=== PATIENT | female | born 1965 | race Caucasian/White ===

== ENCOUNTER → 2023-03-06 15:41 | Outpatient (BNVA) | payer MEDICARE, OTHER, SELFPAY | PROVIDERS: Visit Provider Family Medicine | DX: Z13.6 Encounter for screening for cardiovascular disorders (principal) | CPT/HCPCS: 80053; 80061; 85025 ==

== ENCOUNTER → 2023-05-05 15:16 | Outpatient (BNVA) | payer MEDICARE, SELFPAY | PROVIDERS: PCP Family Medicine; Referring Provider Family Medicine; Visit Provider Specialist | DX: G56.03 Carpal tunnel syndrome, bilateral upper limbs (principal); R20.0 Anesthesia of skin; R20.2 Paresthesia of skin | CPT/HCPCS: 95910; 95911 ==

== ENCOUNTER → 2023-05-09 11:07 | Outpatient (BNVA) | payer MEDICARE, SELFPAY | PROVIDERS: PCP Family Medicine; Visit Provider Family Medicine | DX: E78.5 Hyperlipidemia, unspecified (principal); Z87.891 Personal history of nicotine dependence; Z79.899 Other long term (current) drug therapy | CPT/HCPCS: 80053; 80061 ==

== ENCOUNTER → 2023-05-18 08:59 | Outpatient (BNVA) | payer MEDICARE, SELFPAY | PROVIDERS: PCP Family Medicine; Referring Provider Family Medicine; Visit Provider Surgery | DX: Z12.11 Encounter for screening for malignant neoplasm of colon (principal) | CPT/HCPCS: 99204 ==

== ENCOUNTER → 2023-06-12 10:18 | Outpatient (BNVA) | payer MEDICARE, SELFPAY | PROVIDERS: PCP Family Medicine; Referring Provider Family Medicine; Visit Provider Nurse Practitioner | DX: G56.03 Carpal tunnel syndrome, bilateral upper limbs | CPT/HCPCS: 99204 ==

== ENCOUNTER 2023-06-20 05:47 | Day surgery (SDC) | payer MEDICARE, SELFPAY ==
[2023-06-20] VITALS (10 sets, daily range): BP systolic 99–166; BP diastolic 65–99; PULSE 70–91; RESP 11–20; TEMP 36.1–36.5; O2SAT 92–95; BMI 28.3
[2023-06-20] MEDS: gabapentin 300 mg Capsule PO (06:13)
[2023-06-20] MEDS: CELEcoxib 200 mg Capsule 400 MG PO (06:13)
[2023-06-20] MEDS: acetaminophen 1,000 MG/100 ML PIGGYBACK 400 MG IV (06:17)
[2023-06-20] MEDS: sodium chloride 0.9% 1,000 ML 30 ML IV (06:17)
--- NOTE | 2023-06-20 06:45 | ANES.PREANE2 ---
Pre-Anesthetic Assessment Height/Weight: Height 1.57 m Weight 70.307 kg Temp Pulse Resp BP Pulse Ox O2 Del Method 97 F L 79 18 166/96 95 Room Air 06/20/23 06:04 06/20/23 06:04 06/20/23 06:04 06/20/23 06:04 06/20/23 06:04 06/20/23 06:08 Preop Diagnosis: Left wrist carpal tunnel syndrome. Operation Date: 06/20/23 07:00 Proposed Procedures p Carpal Tunnel Release(Left) - Argentina Rivas MD Familial anesthetic complications: None Was Beta Corbin taken within 24 hours: N/A Was Clonidine taken within 24 hours: N/A Last intake: Intake Last Liquid Date 06/19/23 Last Liquid Time 22:00 Last Solid Date 06/19/23 Last Solid Time 22:00 Social No alcohol and No tobacco Exam alert, oriented x 3, clear to auscultation bilaterally and regular rate & rhythm Airway Mallampati: Class I Dentition: loose (4 bottom very loose - informed of risk of dislodgement) Neuropsych Seizure (next dose of lamotrigine at 10 am) Anesthetic Plan ASA status: 2 Anesthesia: General Risk of > 500 ml blood loss (7ml/kg in children): No Medications/Allergies Home Medications Medication Instructions Recorded Confirmed Last Taken Type lamotrigine 150 mg tablet 300 mg PO BID 02/28/23 06/19/23 06/19/23 History (Lamictal) loratadine 10 mg tablet (Claritin) 10 mg PO DAILY #90 tabs 02/28/23 06/19/23 06/19/23 Rx trazodone 150 mg tablet 150 mg PO DAILY #90 tabs 04/25/23 06/19/23 06/19/23 Rx atorvastatin 20 mg tablet 20 mg PO DAILY #90 tabs 05/10/23 06/19/23 06/19/23 Rx meloxicam 15 mg tablet 15 mg PO DAILY #90 tabs 05/10/23 06/19/23 06/15/23 Rx Allergies Allergy/AdvReac Type Severity Reaction Status Date / Time codeine Allergy Severe ALGY-Anaphy Verified 06/19/23 13:44 laxis morphine Allergy Severe ALGY-Anaphy Verified 06/19/23 13:44 laxis Current Medications Generic Name Dose Route Start Last Admin Trade Name Freq PRN Reason Stop Dose Admin Sodium Chloride 1,000 mls @ 30 mls/hr 06/20/23 06:00 06/20/23 06:17 Sodium Chloride 0.9% IV 06/21/23 05:59 30 mls/hr .Q24H CAMILO Administration PFSH Anesthesia Medical History History of fractured vertebra Insomnia Seizure disorder Surgical History History of back surgery L4-L5 History of bilateral breast reduction surgery History of hysterectomy DOMINGA-BSO - 2015 due to uterine CA. Family History Grandmother Diabetes Grandfather Heart disease Mother Lung cancer Father Heart disease Bleeding disorder Factor V Leiden Social History Smoking and tobacco/nicotine status: former use of tobacco/nicotine Quit status (tobacco/nicotine): has quit using Second hand smoke exposure: No Alcohol intake: current Alcohol intake frequency: 3 or more drinks per day Alcohol type: beer Household members: spouse Housing: House Marital status: Highest education level completed: High School Graduate Data Anesthesia Cardiac Studies: No Data to Display
--- NOTE | 2023-06-20 07:00 | P.HPUD_ITS ---
Surgery/Procedure H&P Update DATE OF PROCEDURE: June 20, 2023 DATE H&P PERFORMED: 06/12/23 H&P UPDATE INFORMATION: I have reviewed H&P completed within last 30 days, I have examined patient prior to procedure, No changes to prior documentation and H&P is in [facility] EMR on date indicated PREOP DIAGNOSIS: Left wrist carpal tunnel syndrome. PLANNED PROCEDURE: Operation Date: 06/20/23 07:00 Proposed Procedures p Carpal Tunnel Release(Left) - Argentina Rvias MD Related Problem List Diagnoses (1) Carpal tunnel syndrome, left:
[2023-06-20] MEDS: ceFAZolin 2,000 MG in sodium chloride 0.9% (plus) 50 ML 100 MG IV (07:08)
[2023-06-20] MEDS: BUPivacaine 0.5% INJ 30 mL XX (07:48)
--- NOTE | 2023-06-20 08:07 | PM.OP ---
Operative Report Date of procedure: June 20, 2023 Pre-op diagnosis: Left carpal tunnel syndrome Post-op diagnosis: Left carpal tunnel syndrome Post-op findings: Purplish discoloration to the median nerve with hourglass deformity Procedure done: Left carpal tunnel release Specimens removed/disposition: None Surgeon: Argentina Rivas MD Tubing Machine Tender: None Anesthesia: General (Per LMA, ASA 2) Estimated blood loss (mL): 1 Tourniquet time (min): 20 (At 250 mmHg) IV fluids (mL): 500 Urine output (mL): 0 (No Peralta) Complications: None Findings: Significant compression across the carpal canal with purplish discoloration of the nerve and hourglass deformity. Condition: stable Disposition: PACU (Then return to same-day surgery for discharge to home) Brief History: This 58-year-old woman presented to the office with complaints of bilateral wrist pain and numbness. The left was worse on the right, and the symptoms have been ongoing for approximately 2 years. Pain was worse at night and awaken her from sleep. She had tried meloxicam without benefit as well as an home exercise program. Nerve conduction studies confirm severe entrapment of the left median nerve at the wrist. Procedure: The patient was brought to the operating theater. The patient had a general anesthesia per LMA, ASA 2. The tourniquet was elevated to 250 mmHg for a total tourniquet time of 20 minutes. The patient was also given Ancef 2 g preoperatively. The arm was then prepped and draped with DuraPrep in usual fashion with the arm draped free. A surgical pause was performed. At the time, the surgical pause, we confirmed the site and side of surgery. We also confirmed the patient's identity, appropriate and timely administration of preoperative antibiotics and preoperative surgical markings. An incision was then made along the thenar crease. The incision crossed the wrist joint in a curvilinear fashion. Dissection continued through skin and soft tissues using a scalpel. The palmaris longus was identified along with the transverse carpal ligament. Each of these was released carefully to avoid injury to the median nerve. We were able to dissect gently into the carpal canal which was noted to be quite tight with significant compression across the median nerve. The nerve was visualized and was an hourglass shape. The canal was subsequently palpated to assure there was no bony encroachment upon the canal. There was a quite thickened fibrous tissue within the canal, and this was opened longitudinally as well. The canal was then palpated distally and proximally to assure that my small finger was passed easily without impingement. Finding this to be so, attention was directed to closure. The wound was irrigated with ropivacaine plain. It was then closed with 3-0 nylon in an interrupted mattress fashion. Sterile dressing was then placed consisting of Dermabond, OpSite, fluffed fluffs, soft roll, and an Noam wrap. The tourniquet was released after 20 minutes. There were no complications. There were no specimens. The procedure was well tolerated. Plan is the patient will be discharged home. Related Problem List Diagnoses (1) Carpal tunnel syndrome, left:
[2023-06-20] MEDS: TRAMadol 50 mg Tablet PO (08:56)
--- NOTE | 2023-06-20 09:15 | ANE.PACU2 ---
Inpatient post-anesthesia follow up: Airway intact: Yes Vital signs: Temperature 97 F Pulse Rate 70 Respiratory Rate 18 Blood Pressure 145/91 Pulse Oximetry 95 Oxygen Delivery Me thod Room Air Oxygen Flow Rate 8 Fraction of Inspir ed Oxygen Hydration adequate: Yes Nausea and vomiting: No Pain level: 1 Mental status: Baseline
== END 2023-06-20 09:14 | disposition home or self-care (01) ==
PROVIDERS: PCP Family Medicine; Visit Provider Specialist
PROC: (CPT 64721; principal; 2023-06-20 07:00)
DX: G56.02 Carpal tunnel syndrome, left upper limb (principal); Z87.891 Personal history of nicotine dependence
CPT/HCPCS: 64721; J0131; J0690; J1100; J2250; J2405; J2704; J3010; J3490; J7030

== ENCOUNTER → 2023-07-10 16:24 | Outpatient (BNVA) | payer MEDICARE, SELFPAY | PROVIDERS: PCP Family Medicine; Visit Provider Specialist | DX: Z01.818 Encounter for other preprocedural examination (principal); G56.03 Carpal tunnel syndrome, bilateral upper limbs | CPT/HCPCS: 36415; 80053; 81003; 85025; 99214 ==

== ENCOUNTER 2023-07-20 07:43 | Day surgery (SDC) | payer MEDICARE, SELFPAY ==
[2023-07-20] VITALS (9 sets, daily range): BP systolic 129–172; BP diastolic 67–107; PULSE 65–91; RESP 16–18; TEMP 36.1–36.7; O2SAT 91–96; BMI 28.3
--- NOTE | 2023-07-20 08:05 | P.HPUD_ITS ---
Surgery/Procedure H&P Update DATE OF PROCEDURE: July 20, 2023 DATE H&P PERFORMED: 07/10/23 H&P UPDATE INFORMATION: I have reviewed H&P completed within last 30 days, I have examined patient prior to procedure, No changes to prior documentation and H&P is in [facility] EMR on date indicated PLANNED PROCEDURE: Operation Date: 07/20/23 09:30 Proposed Procedures p Carpal Tunnel Release(Right) - Argentina Rivas MD Related Problem List Diagnoses (1) Carpal tunnel syndrome on right:
[2023-07-20] MEDS: acetaminophen 1,000 MG/100 ML PIGGYBACK 400 MG IV (08:17)
[2023-07-20] MEDS: CELEcoxib 200 mg Capsule 400 MG PO (08:20)
[2023-07-20] MEDS: sodium chloride 0.9% 1,000 ML 30 ML IV (08:23)
[2023-07-20] MEDS: ceFAZolin 2,000 MG in sodium chloride 0.9% (plus) 50 ML 100 MG IV (08:50)
--- NOTE | 2023-07-20 09:05 | ANES.PREANE2 ---
Pre-Anesthetic Assessment Height/Weight: Height 1.57 m Weight 70.307 kg Temp Pulse Resp BP Pulse Ox O2 Del Method 97.7 F 83 16 158/99 96 Room Air 07/20/23 08:00 07/20/23 08:00 07/20/23 08:00 07/20/23 08:00 07/20/23 08:00 07/20/23 08:02 Preop Diagnosis: CTS Operation Date: 07/20/23 09:30 Proposed Procedures p Carpal Tunnel Release(Right) - Argentina Rivas MD Was Beta Corbin taken within 24 hours: N/A Was Clonidine taken within 24 hours: N/A Last intake: Intake Last Liquid Date 07/19/23 Last Liquid Time 22:00 Last Solid Date 07/19/23 Last Solid Time 22:00 Social No alcohol and No tobacco Exam alert, oriented x 3, clear to auscultation bilaterally and regular rate & rhythm Airway Submandibular: within normal limits Cervical ROM: within normal limits Mallampati: Class II Dentition: false Comments: Comments: upper. 4 loose teeth front bottom History/ROS No significant history except as noted and No significant complaints Pulmonary None reported CV/HEM None reported None reported Hepatic None reported GI None reported Metabolic None reported Musc/skel None reported Neuropsych Seizure Anesthetic Plan ASA status: 2 Anesthesia: Anesthesia Evaluation and General Risk of > 500 ml blood loss (7ml/kg in children): No Medications/Allergies Home Medications Medication Instructions Recorded Confirmed Last Taken Type lamotrigine 150 mg tablet 300 mg PO BID 02/28/23 07/17/23 07/20/23 History (Lamictal) loratadine 10 mg tablet (Claritin) 10 mg PO DAILY #90 tabs 02/28/23 07/17/23 07/19/23 Rx atorvastatin 20 mg tablet 20 mg PO BEDTIME 07/17/23 07/17/23 07/19/23 History meloxicam 15 mg tablet 15 mg PO DAILY PRN Pain, Mild 07/17/23 07/17/23 07/10/23 History trazodone 150 mg tablet 150 mg PO BEDTIME 07/17/23 07/17/23 07/19/23 History Allergies Allergy/AdvReac Type Severity Reaction Status Date / Time codeine Allergy Severe ALGY-Anaphy Verified 07/10/23 15:57 laxis morphine Allergy Severe ALGY-Anaphy Verified 07/10/23 15:57 laxis Current Medications Generic Name Dose Route Start Last Admin Trade Name Freq PRN Reason Stop Dose Admin Sodium Chloride 1,000 mls @ 30 mls/hr 07/20/23 08:00 07/20/23 08:23 Sodium Chloride 0.9% IV 07/21/23 07:59 30 mls/hr .Q24H CAMILO Administration PFSH Anesthesia Medical History History of fractured vertebra Insomnia Seizure disorder Surgical History History of back surgery L4-L5 History of bilateral breast reduction surgery History of hysterectomy DOMINGA-BSO - 2015 due to uterine CA. Family History Grandmother Diabetes Grandfather Heart disease Mother Lung cancer Father Heart disease Bleeding disorder Factor V Leiden Social History Smoking and tobacco/nicotine status: former use of tobacco/nicotine Quit status (tobacco/nicotine): has quit using Second hand smoke exposure: No Alcohol intake: current Alcohol intake frequency: 3 or more drinks per day Alcohol type: beer Household members: spouse Housing: House Marital status: Highest education level completed: High School Graduate Data Anesthesia Cardiac Studies: No Data to Display
[2023-07-20] MEDS: BUPivacaine 0.5% INJ 30 mL XX (09:18)
--- NOTE | 2023-07-20 10:25 | P.OP_ITS ---
Operative Report Date of procedure: July 20, 2023 Pre-op diagnosis: Right carpal tunnel syndrome Post-op diagnosis: Right carpal tunnel syndrome Post-op findings: Severe carpal tunnel syndrome with purplish discoloration of the median nerve and compression across the carpal canal Procedure done: Right carpal tunnel release Implants: None Specimens removed/disposition: None Surgeon: Argentina Rivas MD Associate Java Developer: None Anesthesia: General (Per LMA, ASA 2) Estimated blood loss (mL): 1 Tourniquet time (min): 18 (At 250 mmHg) IV fluids (mL): 400 Urine output (mL): 0 (No Peralta) Complications: None Findings: Consistent with severe carpal tunnel syndrome Condition: stable Disposition: PACU (Then return to same-day surgery for discharge to home) Brief History: This 58-year-old woman presents today for right carpal tunnel release. Previously, in May of this year, she underwent left carpal tunnel release and she is doing well following this. Today, she presents for right carpal tunnel release. Risks and complications were discussed with her in the office. Consents were signed and questions were answered. Procedure: The patient was brought to the operating theater. The patient had a general anesthesia per LMA, ASA 2. The tourniquet was elevated to 250 mmHg for a total tourniquet time of 18 minutes. The patient was also given Ancef 2 g preoperatively. The arm was then prepped and draped with DuraPrep in usual fashion with the arm draped free. A surgical pause was performed. At the time, the surgical pause, we confirmed the site and side of surgery. We also confirmed the patient's identity, appropriate and timely administration of preoperative antibiotics and preoperative surgical markings. An incision was then made along the thenar crease. The incision crossed the wrist joint in a curvilinear fashion. Dissection continued through skin and soft tissues using a scalpel. The palmaris longus was identified along with the transverse carpal ligament. Each of these was released carefully to avoid injury to the median nerve. We were able to dissect gently into the carpal canal which was noted to be quite tight with significant compression across the median nerve. The nerve was visualized and was an hourglass shape. The canal was subsequently palpated to assure there was no bony encroachment upon the canal. There was a quite thickened fibrous tissue within the canal, and this was opened longitudinally as well. The canal was then palpated distally and proximally to assure that my small finger was passed easily without impingement. Finding this to be so, attention was directed to closure. The wound was irrigated with ropivacaine plain. It was then closed with 3-0 nylon in an interrupted mattress fashion. Sterile dressing was then placed consisting of Dermabond, OpSite, fluffed fluffs, soft roll, and an Noam wrap. The tourniquet was released after 18 minutes. There were no complications. There were no specimens. The procedure was well tolerated. Plan is the patient will be discharged home. Related Problem List Diagnoses (1) Carpal tunnel syndrome on right:
--- NOTE | 2023-07-20 11:00 | ANE.PACU2 ---
Inpatient post-anesthesia follow up: Airway intact: Yes Vital signs: Temperature 98.1 F Pulse Rate 67 Respiratory Rate 16 Blood Pressure 129/90 Pulse Oximetry 95 Oxygen Delivery Me thod Room Air Oxygen Flow Rate Fraction of Inspir ed Oxygen Hydration adequate: Yes Nausea and vomiting: No Pain level: 1 Mental status: Baseline
== END 2023-07-20 11:00 | disposition home or self-care (01) ==
PROVIDERS: PCP Family Medicine; Visit Provider Specialist
PROC: (CPT 64721; principal; 2023-07-20 09:20)
DX: G56.01 Carpal tunnel syndrome, right upper limb (principal); Z87.891 Personal history of nicotine dependence
CPT/HCPCS: 64721; J0131; J0690; J1100; J2405; J2704; J3010; J3490; J7030

== ENCOUNTER → 2023-08-07 07:50 | Outpatient (BNVA) | payer MEDICARE, SELFPAY | PROVIDERS: PCP Family Medicine; Visit Provider Specialist | DX: G56.03 Carpal tunnel syndrome, bilateral upper limbs (principal) | CPT/HCPCS: 99024 ==

== ENCOUNTER → 2023-12-21 13:38 | Outpatient (BNVA) | payer MEDICARE, SELFPAY | PROVIDERS: PCP Family Medicine; Visit Provider Family Medicine | DX: D48.5 Neoplasm of uncertain behavior of skin (principal) | CPT/HCPCS: 88305 ==

== ENCOUNTER 2024-01-03 09:48 | Outpatient (CLI) | payer MEDICARE, SELFPAY ==
--- NOTE | 2024-01-03 10:00 | CT_ITS ---
WS: [id number] LDCT LUNG CANCER SCREENING HISTORY: screening for lung cancer; smoker; 60pk yr TECHNIQUE: Axial imaging performed from the apices to 1 cm below the costophrenic angles. Coronal and sagittal reformats are submitted with axial MIP series. All CT scans at [facility] use at least one of these dose optimization techniques: automated exposure control; mA and/or kV adjustment per patient size (includes targeted exams where dose is matched to clinical indication); or iterativ e reconstruction. DLP: 55.72 mGy.cm DIvol: Mean CTDIvol: 1.10 (mGy) COMPARISON: None available. Diagnostic quality: Satisfactory Lungs: Slightly hyperexpanded lungs. No mass or pneumonia. No pulmonary nodules. No endobronchial les ions or groundglass attenuation. Very slight bronchial wall irregularity and dilatation LEFT upper lo be. Early changes of bronchiectasis. Heart: Normal size heart with no pericardial effusion.. Other findings: Mild atherosclerosis aorta. No mediastinal or hilar adenopathy. Low-attenuation LEFT adrenal mass measures 2.5 x 2.4 cm consistent with an adrenal adenoma. Mild increase in thoracic kyph osis. CT/CT lung screening [id number] IMPRESSION: LUNG-RADS: 1S-Negative with Significant Findings FOLLOW UP: 12 Month: Continue annual screening with LDCT OTHER FINDINGS (S MODIFIER): LEFT adrenal adenoma.
== END 2024-01-03 09:49 | disposition home or self-care (01) ==
LOC: RAD 09:49
PROVIDERS: PCP Family Medicine; Visit Provider Family Medicine
DX: F17.210 Nicotine dependence, cigarettes, uncomplicated (principal); Z12.2 Encounter for screening for malignant neoplasm of respiratory organs; D35.02 Benign neoplasm of left adrenal gland; M40.204 Unspecified kyphosis, thoracic region; I70.0 Atherosclerosis of aorta
CPT/HCPCS: 71271

== ENCOUNTER 2024-03-24 11:47 | Inpatient (IN) | payer MEDICARE, SELFPAY ==
[2024-03-24] VITALS (16 sets, daily range): BP systolic 118–155; BP diastolic 76–90; PULSE 89–127; RESP 16–24; TEMP 37.1–39.2; O2SAT 87–96; BMI 26.5; BMI 26.7
--- NOTE | 2024-03-24 11:48 | ECG_ITS ---
[facility]: 2024-03[facility]24 Pat Name: Meka Kendall Department: Room: Gender: Female Capacity Management Specialist: : [id number] Requested By: Donna Morales Order Number: [id number] Jermaine MD: Lester Luis M.D. Measurements Intervals [place] Rate: 128 P: 74 ND: 164 QRS: 254 QRSD: 80 T: 70 QT: 289 QTc: 422 Interpretive Statements SINUS TACHYCARDIA PATTERN CONSISTENT WITH PULMONARY DISEASE RIGHT VENTRICULAR HYPERTROPHY [SOME/ALL OF: PROMINENT R IN V1, LATE TRANSITION, RAD, TAMANNA, SSS] MINIMAL ST DEPRESSION [0.025+ mV ST DEPRESSION] No previous ECG available for comparison Electronically Signed On 03-24-2024 20:04:22 FEATHERER by Lester Luis M.D. [id number]
--- NOTE | 2024-03-24 11:51 | XRR_ITS ---
PROCEDURE INFORMATION: Exam: XR Chest Exam date and time: 03/24/2024 12:14 PM Age: 58 years old Clinical indication: Shortness of breath; Prior surgery; Surgery date: 6+ months; Surgery type: Bilateral breast reduction; Additional info: SOB TECHNIQUE: Imaging protocol: Radiologic exam of the chest. Views: 1 view. COMPARISON: CT lung screening [id number] 01/03/2024 9:54 AM FINDINGS: Lungs: Unremarkable. No consolidation or mass. Pleural spaces: Unremarkable. No pleural effusion. No pneumothorax. Heart/Mediastinum: Unremarkable. No cardiomegaly. Bones/joints: Unremarkable. XR/XR chest 1V portable [id number] IMPRESSION: No acute findings.
--- NOTE | 2024-03-24 12:14 | ED_ITS ---
HPI - SOB/Dyspnea 2 General: Chief Complaint: Shortness of Breath/Dyspnea Stated Complaint: sob Time Seen by Provider: 03/24/24 12:00 Source: patient Mode of arrival: ambulatory Limitations: no limitations History of Present Illness: HPI Narrative: 58-year-old female is a longtime smoker states that over the last 2 days she has been having increasing cough congestion fevers along with shortness of breath. States she has been having vomiting as well cough but nonproductive she denies any worsening improving factors. Associated symptoms: Reports fever(s); Deny abdominal pain, chest pain, nausea or vomiting Related Data Home Medications Medication Instructions Recorded Confirmed lamotrigine 150 mg tablet 300 mg PO BID 02/28/23 03/24/24 (Lamictal) trazodone 150 mg tablet 150 mg PO DAILY 03/24/24 03/24/24 Previous Rx's Medication Instructions Recorded loratadine 10 mg tablet (Claritin) 10 mg PO DAILY #90 tabs 02/28/23 rosuvastatin 20 mg tablet 20 mg PO DAILY #90 tabs 01/08/24 Allergies Allergy/AdvReac Type Severity Reaction Status Date / Time codeine Allergy Severe ALGY-Anaphy Verified 03/24/24 11:57 laxis morphine Allergy Severe ALGY-Anaphy Verified 03/24/24 11:57 laxis Review of Systems 2 Const: Reports: fever(s) and body aches; Denies: chills or change in appetite ENMT: Denies: throat pain or dental pain Card: Denies: chest pain Resp: Reports: dyspnea and non-productive cough GI: Denies: abdominal pain, nausea, vomiting or diarrhea Musc: Denies: neck pain or back pain Skin/Breast: Denies: rash Neuro: Denies: headache(s) PFSH ED 2 PFSH: Medical History Fibromyalgia Nicotine dependence, cigarettes, uncomplicated Hx of cancer of uterus had hyst History of fractured vertebra Insomnia Seizure disorder Surgical History History of carpal tunnel release of both wrists Hx of reduction mammoplasty History of back surgery L4-L5 History of bilateral breast reduction surgery History of hysterectomy DOMNIGA-BSO - 2015 due to uterine CA. Family History Grandmother Diabetes Grandfather Heart disease Mother Lung cancer Father Heart disease Bleeding disorder Factor V Leiden Social History Smoking and tobacco/nicotine status: current every day tobacco/nicotine user cigarettes Packs smoked per day: 1.5 Years cigarettes smoked: 40 [ Other cigarette details: age 18 to now] Alcohol intake: current Alcohol intake frequency: 3 or more drinks per day Alcohol type: beer Substance/Drug Use: never Household members: spouse Housing: House Marital status: Number of children: 3 Highest education level completed: High School Graduate Current occupational status: disabled 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 Exam 2 Const: COMMON NORMALS: patient oriented x3 HENMT: COMMON NORMALS: normocephalic and atraumatic HEAD & SCALP: n ormocephalic and atraumatic Eye: COMMON NORMALS: Equal, round and reactive pupils present and conjunctivae normal CONJUNCTIVA: Yes conjunctivae normal PUPIL: Yes Equal, round and reactive pupils present Neck/C-Spine: COMMON NORMALS: full ROM and supple Chest: COMMONS NORMALS: normal inspection of the chest Resp: COMMON NORMALS: No retractions and clear to auscultation bilaterally AUSCULTATION: clear to auscultation bilaterally and wheezes Cardio: COMMON NORMALS: regular rate, regular rhythm and No murmurs present (Cardio) RATE: regular rate RHYTHM: regular rhythm GI: COMMON NORMALS: Normal to inspection, nondistended, normoactive bowel sounds present, Soft to palpation, non-tender and no masses PALPATION: Yes Soft to palpation Extremity: COMMON NORMALS: normal to inspection and full ROM Neuro: COMMON NORMALS: patient oriented x3, moves all extremities and no focal motor deficits Psych: COMMON NORMALS: mental status grossly normal, Normal thought process present and cooperative THOUGHT PROCESS: Normal thought process present Skin: COMMON NORMALS: no rashes or lesions noted and no wounds GENERAL SKIN EXAM: no rashes or lesions noted Course 2 Vital Signs: Vital signs: Vital Signs Temperature 102.5 F H 03/24/24 11:49 Pulse Rate 122 H 03/24/24 12:33 Respiratory Rate 18 03/24/24 12:33 Blood Pressure 134/90 03/24/24 12:07 Pulse Oximetry 88 L 03/24/24 12:33 Oxygen Delivery Me thod Room Air 03/24/24 12:22 MDM - SOB/Dyspnea Medical Decision Making Patient presents here with shortness of breath fever did test positive for flu a patient still hypoxic requiring oxygen after breathing treatment spoke to the hospitalist will admit at this time. Medical Records I reviewed the patient's medical records. Lab Data I reviewed the patient's lab results. 03/24/24 12:25 03/24/24 12:25 Labs/Radiology: Radiology Impressions Chest X-Ray 03/24/24 11:51 IMPRESSION: No acute findings. Laboratory Results WBC 15.34 10^3/uL (3.29-11.43) H 03/24/24 12:25 RBC 5.29 10^6/uL (3.85-5.65) 03/24/24 12:25 Hgb 16.30 g/dL (11.27-16.99) 03/24/24 12:25 Hct 48.5 % (36-47) H 03/24/24 12:25 MCV 91.7 fl (85-98) 03/24/24 12:25 MCH 30.8 pg (27-33) 03/24/24 12:25 MCHC 33.6 g/dL (30-55) 03/24/24 12:25 RDW 12.6 % (12.1-15.1) 03/24/24 12:25 Plt Count 335 10^3/cmm (157-399) 03/24/24 12:25 MPV 9.2 fL (7.4-10.4) 03/24/24 12:25 Neut % (Auto) 84.1 % 03/24/24 12:25 Lymph % (Auto) 8.9 % 03/24/24 12:25 [place] % (Auto) 5.5 % 03/24/24 12:25 Eos % (Auto) 0.1 % 03/24/24 12:25 Baso % (Auto) 0.7 % 03/24/24 12:25 Neut # (Auto) 12.92 10^3/uL (1.8-7.7) H 03/24/24 12:25 Lymph # (Auto) 1.4 10^3/uL (0.8-4.8) 03/24/24 12:25 [place] # (Auto) 0.9 10^3/uL (0.2-0.9) 03/24/24 12:25 Eos # (Auto) 0.0 10^3/uL (0.0-0.8) 03/24/24 12:25 Baso # (Auto) 0.1 10^3/uL (0.0-0.1) 03/24/24 12:25 Nucleated RBC % (auto) 0 % 03/24/24 12:25 Nucleated RBCs # 0.0 /100WBC 03/24/24 12:25 PT 12.80 SECONDS (12.1-14.9) 03/24/24 12:25 INR 0.93 (0.8-1.2) 03/24/24 12:25 Sodium 131 mmol/L (136-145) L 03/24/24 12:25 Potassium 4.0 mmol/L (3.5-5.1) 03/24/24 12:25 Chloride 95 mmol/L (98-107) L 03/24/24 12:25 Carbon Dioxide 18 mmol/L (22-29) L 03/24/24 12:25 Anion Gap 22.0 (5-19) H 03/24/24 12:25 BUN 9 mg/dL (6-20) 03/24/24 12:25 Creatinine 0.7 mg/dL (0.5-0.9) 03/24/24 12:25 GFR Calculation 86.6 mL/min (90-130) L 03/24/24 12:25 Glucose 135 mg/dL (65-115) H 03/24/24 12:25 Calculated Osmolality 273 mOsm/kg (285-295) L 03/24/24 12:25 Lactic Acid 1.6 mmol/L (0.5-2.2) 03/24/24 12:25 Calcium 9.3 mg/dL (8.5-10.5) 03/24/24 12:25 Total Bilirubin 0.3 mg/dL (0.15-1.2) 03/24/24 12:25 AST 46 U/L (0-32) H 03/24/24 12:25 ALT 31 U/L (0-33) 03/24/24 12:25 Alkaline Phosphatase 116 U/L (35-105) H 03/24/24 12:25 NT-Pro-B Natriuret Pep 246 pg/mL (0-125) H 03/24/24 12:25 Total Protein 7.9 g/dL (6.6-8.7) 03/24/24 12:25 Albumin 4.2 g/dL (3.5-5.2) 03/24/24 12:25 Globulin 3.7 g/dL (1.3-4.6) 03/24/24 12:25 Urine Color Yellow (Yellow) 03/24/24 12:10 Urine Appearance Cloudy (CLEAR) A 03/24/24 12:10 Urine pH 5.5 (5-7) 03/24/24 12:10 Ur Specific [place] 1.022 (1.005-1.030) 03/24/24 12:10 Urine Protein 2+ (Negative) A 03/24/24 12:10 Urine Glucose (UA) Negative (Normal) 03/24/24 12:10 Urine Ketones 2+ (Negative) H 03/24/24 12:10 Urine Blood 2+ (Negative) A 03/24/24 12:10 Urine Nitrate Negative (Negative) 03/24/24 12:10 Urine Bilirubin Negative (Negative) 03/24/24 12:10 Urine Urobilinogen 1.0 mg/dL (Negative) 03/24/24 12:10 Ur Leukocyte Esterase Negative (Negative) 03/24/24 12:10 Urine RBC 6-10 /hpf (0-2) 03/24/24 12:10 Urine WBC 0-5 /hpf (0-5) 03/24/24 12:10 Ur Squamous Epith Cells 6-10 /hpf (0-5) 03/24/24 12:10 Amorphous Sediment Not Reportable 03/24/24 12:10 Urine Bacteria 1+ /hpf (NONE) H 03/24/24 12:10 Hyaline Casts 5.36 /lpf 03/24/24 12:10 Coarse Granular Casts 5-10 /lpf H 03/24/24 12:10 Coronavirus (PCR) Negative (Negative) 03/24/24 12:09 Influenza A (PCR) Positive (Negative) 03/24/24 12:09 Influenza Type B (PCR) Negative (Negative) 03/24/24 12:09 RSV (PCR) Negative (Negative) 03/24/24 12:09 All radiology interpretation(s) finalized by discharge Discharge Plan Discharge Patient Disposition: Admitted As Inpatient Clinical Impression: Influenza A, Acute respiratory failure with hypoxia Condition: Stable Prescriptions: No Action lamotrigine [Lamictal] 150 mg tablet 300 mg PO BID loratadine [Claritin] 10 mg tablet 10 mg PO DAILY Qty: 90 1RF rosuvastatin 20 mg tablet 20 mg PO DAILY Qty: 90 0RF trazodone 150 mg tablet 150 mg PO DAILY Referrals: Chanel Yepez MD [Primary Care Provider] - Coding Level of Care Code ED Cloth Bale Header for Maryann Morrissey
[2024-03-24] MEDS: ipratropium-albuterol 3 mL Neb INHALATION ×2 (12:22→20:49)
[2024-03-24 12:23] LABS: Bilirubin Urine Negative (Negative); Blood Urine 2+ (Negative); Glucose Urine UA Negative (Normal); Ketones Urine 2+ (Negative); Leukocyte Esterase Urine Negative (Negative); Nitrate Urine Negative (Negative); Protein Urine 2+ (Negative); Specific Gravity, Urine 1.022 (1.005-1.030); Urine Appearance Cloudy (CLEAR); Urine Color Yellow (Yellow); pH Urine 5.5 (5-7)
[2024-03-24] MEDS: sodium chloride 0.9% 1,973.13 ML 1000 ML IV (12:27)
[2024-03-24 12:29] LABS: Add Urine Microscopic? YES; Hyaline Casts Urine 5.36 /lpf; WBC Urine 0-5 /hpf (0-5)
[2024-03-24] MEDS: dexamethasone 10 mg/mL INJ IVP (12:31)
[2024-03-24 12:36] LABS: Basophils # 0.1 10^3/uL (0.0-0.1); Basophils % 0.7 %; Eosinophils % 0.1 %; Hematocrit 48.5 % (36-47); Lymphocytes # 1.4 10^3/uL (0.8-4.8); Lymphocytes % 8.9 %; Mean Corpuscular HGB Conc 33.6 g/dL (30-55); Mean Corpuscular Hemoglobin 30.8 pg (27-33); Mean Corpuscular Volume 91.7 fl (85-98); Mean Platelet Volume 9.2 fL (7.4-10.4); Monocytes # 0.9 10^3/uL (0.2-0.9); Monocytes % 5.5 %; Neutrophils # 12.92 10^3/uL (1.8-7.7); Neutrophils % 84.1 %; Nucleated Red Blood Cells % 0 %; Platelet Count 335 10^3/cmm (157-399); Red Blood Count 5.29 10^6/uL (3.85-5.65); Red Cell Distribution Width 12.6 % (12.1-15.1); White Blood Count 15.34 10^3/uL (3.29-11.43)
[2024-03-24 12:46] LABS: Bacteria Urine 1+ /hpf; UA Slide Review UA Slide Review Perf
[2024-03-24 12:47] LABS: Add Urine Culture? Yes
[2024-03-24 12:48] LABS: INR 0.93 (0.8-1.2)
[2024-03-24 12:55] LABS: Lactic Sepsis W/Reflex 1.6 mmol/L (0.5-2.2)
[2024-03-24 12:58] LABS: Covid PCR NEGATIVE (Negative); Influenza A POSITIVE (Negative); Influenza B NEGATIVE (Negative); Respiratory Syncytial Virus Ce NEGATIVE (Negative)
[2024-03-24 13:02] LABS: Alanine Aminotransferase 31 U/L (0-33); Albumin Level 4.2 g/dL (3.5-5.2); Alkaline Phosphatase 116 U/L (35-105); Aspartate Amino Transferase 46 U/L (0-32); Blood Urea Nitrogen 9 mg/dL (6-20); Calcium 9.3 mg/dL (8.5-10.5); Carbon Dioxide 18 mmol/L (22-29); Chloride 95 mmol/L (98-107); Creatinine Clr Calc Pharmacy 79.8552; Globulin 3.7 g/dL (1.3-4.6); Glomerular Filtration Rate 86.6 mL/min (90-130); Glucose 135 mg/dL (65-115); NT Pro B Type Natriuretic Pept 246 pg/mL (0-125); Osmolality Calculated 273 mOsm/kg (285-295); Sodium 131 mmol/L (136-145); Total Bilirubin 0.3 mg/dL (0.15-1.2); Total Protein 7.9 g/dL (6.6-8.7)
[2024-03-24] MEDS: oseltamivir phosphate 75 mg Capsule PO ×2 (13:22→22:04)
--- NOTE | 2024-03-24 13:26 | PC.NURSE ---
pt upon arrival to er 6, pt o2 sat was 86% to 87% RA, pt was then placed on 2L NC and pt is now sat at 91% 2L NC.
[2024-03-24 14:07] LABS: Troponin(5th) Baseline 9 ng/L (0-10)
--- NOTE | 2024-03-24 14:38 | CTR_ITS ---
PROCEDURE INFORMATION: Exam: CTA Chest With Contrast Exam date and time: 03/24/2024 3:04 PM Age: 58 years old Clinical indication: Shortness of breath; Patient HX: Flu +; Additional info: SOB TECHNIQUE: Imaging protocol: Computed tomographic angiography of the chest with contrast. Exam focused on the arteries. 3D rendering (Not supervised by radiologist): MIP and/or 3D reconstructed images were created by the technologist. Radiation optimization: All CT scans at this facility use at least one of these dose optimization techniques: automated exposure control; mA and/or kV adjustment per patient size (includes targeted exams where dose is matched to clinical indication); or iterative reconstruction. Contrast material: OMNIPAQUE 350; Contrast volume: 80 ml; Contrast route: INTRAVENOUS (IV); COMPARISON: CT lung screening [id number] 01/03/2024 9:54 AM RADIATION DOSE METRICS: Total DLP (mGy-cm): 353.84 FINDINGS: Pulmonary arteries: Normal. No pulmonary emboli. Aorta: Unremarkable. No aortic aneurysm. No aortic dissection. Lungs: Multiple areas of patchy pulmonary infiltrates are noted throughout both lungs. There appears to be a peripheral and upper lobe predominance. No dense consolidation or mass. Pleural spaces: Unremarkable. No pneumothorax. No pleural effusion. Heart: Unremarkable. No cardiomegaly. No pericardial effusion. Lymph nodes: Unremarkable. No enlarged lymph nodes. Adrenal glands: There is a 3.8 cm stable left adrenal adenoma. Bones/joints: Unremarkable. No acute fracture. Soft tissues: Unremarkable. CT/CT angio chest PE protcl [id number] IMPRESSION: 1. Bilateral pulmonary infiltrates highly suspicious for COVID pneumonia 2. Stable 3.8 cm left adrenal adenoma
--- NOTE | 2024-03-24 14:42 | P.HP_ITS ---
Providers/Chief Complaint 2 Primary Care Provider: Chanel Yepez MD Chief Complaint: sob History of Present Illness Meka Kendall is a 58 year old female with a past medical history of smoking, no formal diagnosis of COPD, who presents to [facility] due to shortness of breath, cough fatigue, malaise, fevers for the last 3 days. Patient reports that she can smoke up to 1 to 2 packs/day, she has never been formally diagnosed with COPD, for the last 3 days she has been having increased shortness of breath, shortness of breath with minimal exertion, cough, nonproductive, fatigue, malaise, fevers, chills. He denies any nausea, no vomiting does report chest pain upon exertion Review of Systems 2 Const: Reports: fever(s), chills, fatigue and malaise Card: Reports: chest pain Resp: Reports: dyspnea GI: Denies: abdominal pain Medications/Allergies Home Medications Medication Instructions Recorded Confirmed Last Taken Type lamotrigine 150 mg tablet 300 mg PO BID 02/28/23 03/24/24 07/20/23 History (Lamictal) loratadine 10 mg tablet (Claritin) 10 mg PO DAILY #90 tabs 02/28/23 03/24/24 07/19/23 Rx rosuvastatin 20 mg tablet 20 mg PO DAILY #90 tabs 01/08/24 03/24/24 Unknown Rx trazodone 150 mg tablet 150 mg PO DAILY 03/24/24 03/24/24 Unknown History Allergies Allergy/AdvReac Type Severity Reaction Status Date / Time codeine Allergy Severe ALGY-Anaphy Verified 03/24/24 11:57 laxis morphine Allergy Severe ALGY-Anaphy Verified 03/24/24 11:57 laxis PFSH Acute 2 PFSH: Medical History Fibromyalgia Nicotine dependence, cigarettes, uncomplicated Hx of cancer of uterus had hyst History of fractured vertebra Insomnia Seizure disorder Surgical History History of carpal tunnel release of both wrists Hx of reduction mammoplasty History of back surgery L4-L5 History of bilateral breast reduction surgery History of hysterectomy DOMINGA-BSO - 2015 due to uterine CA. Family History Grandmother Diabetes Grandfather Heart disease Mother Lung cancer Father Heart disease Bleeding disorder Factor V Leiden Social History Smoking and tobacco/nicotine status: current every day tobacco/nicotine user cigarettes Packs smoked per day: 1.5 Years cigarettes smoked: 40 [ Other cigarette details: age 18 to now] Alcohol intake: current Alcohol intake frequency: 3 or more drinks per day Alcohol type: beer Substance/Drug Use: never Household members: spouse Housing: House Marital status: Number of children: 3 Highest education level completed: High School Graduate Current occupational status: disabled 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 Vitals/I&O/Wt Last Vital Signs Temp 102.5 F H 03/24/24 11:49 Pulse 120 H 03/24/24 14:35 Resp 16 03/24/24 14:35 BP 121/78 03/24/24 14:35 Pulse Ox 92 03/24/24 14:35 O2 Del Method Nasal Cannula 03/24/24 14:35 O2 Flow Rate 2 03/24/24 14:35 03/23/24 03/24/24 03/24/24 22:59 06:59 14:59 Intake Total 0 / 0 Balance 0 / 0 Weight last 48 hrs Weight 65.771 kg Physical Exam 2 Const: COMMON NORMALS: no acute distress and patient oriented x3 Eye: COMMON NORMALS: Equal, round and reactive pupils present and EOMs intact bilaterally Resp: COMMON NORMALS: normal respiratory effort, No retractions, No use of accessory muscles and clear to auscultation bilaterally AUSCULTATION: c rackles and wheezes Cardio: COMMON NORMALS: regular rate, regular rhythm, S1 normal heart sound present and S2 normal heart sound present RATE: regular rate RHYTHM: r egular rhythm HEART SOUNDS: S1 normal heart sound present and S2 normal heart sound present GI: COMMON NORMALS: Normal to inspection, nondistended, normoactive bowel sounds present, Soft to palpation and non-tender Extremity: COMMON NORMALS: no pedal edema Neuro: COMMON NORMALS: patient oriented x3, CN's II-XII intact bilaterally and moves all extremities Psych: COMMON NORMALS: mental status grossly normal Data 03/24/24 12:25 03/24/24 12:25 Micro: Microbiology 03/24/24 12:28 Blood Culture - Preliminary Blood SPECIMEN COLLECTED 03/24/24 12:25 Blood Culture - Preliminary Blood SPECIMEN COLLECTED A&P Assessment and plan (1) Acute respiratory failure with hypoxia: (2) Influenza A: (3) Sepsis: Plan Acute hypoxic respiratory failure -Secondary to influenza A -With evidence of sepsis, sepsis features met given fevers, tachycardia, respiratory failure, hypoxia, leukocytosis -With underlying COPD exacerbation Plan ? CT angiogram the chest -IV fluids ? DuoNeb ? Budesonide -Tamiflu -Tessalon Perles for cough -Monitor respiratory status closely -Full code -Lovenox for DVT prophylaxis Chest pain, serial EKGs, serial troponins, telemetry monitoring Attestations 2 Medical Necessity Statement*: Requires hospitalization, inpatient, greater than 2 midnights for acute hypoxic respiratory failure, secondary influenza, sepsis Diagnoses Acute respiratory failure with hypoxia J96.01 Influenza A J10.1 Sepsis A41.9
--- NOTE | 2024-03-24 15:00 | PC.NURSE ---
Called med surg at 14:50. Was on hold for 10 minutes. Will call back.
[2024-03-24 15:04] LABS: Thyroid Stimulating Hormone 0.86 uIU/mL (0.27-4.20)
[2024-03-24] MEDS: iohexol 350 mg/mL 500 mL Btl (per mL) IV (15:06)
[2024-03-24] MEDS: sodium chloride 0.9% 1,000 ML 75 ML IV (15:11)
--- NOTE | 2024-03-24 15:21 | ECG_ITS ---
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 Measurements Intervals [place] Rate: 99 P: 69 ID: [id number] QRS: 243 QRSD: 86 T: 33 QT: 320 QTc: 411 Interpretive Statements SINUS RHYTHM PATTERN CONSISTENT WITH PULMONARY DISEASE RIGHT VENTRICULAR HYPERTROPHY [SOME/ALL OF: PROMINENT R IN V1, LATE TRANSITION, RAD, TAMANNA, SSS] MINIMAL ST DEPRESSION [0.025+ mV ST DEPRESSION] Compared to ECG 03/24/2024 11:51:04 Sinus tachycardia no longer present ST (T wave) deviation still present Electronically Signed On 03-24-2024 20:10:41 BOLT SORTER by Lester Luis M.D. [id number]
[2024-03-24] MEDS: pantoprazole 40 mg SDV IVP (16:44)
[2024-03-24] MEDS: enoxaparin 40 mg/0.4 mL Syringe SUBCUT (16:45)
[2024-03-24 18:25] LABS: Troponin 5 6HR 9.87 ng/L (0-10); Troponin 5 6HR Delta 0.87 ng/L (0-12)
[2024-03-24] MEDS: lamoTRIgine 100 mg Tablet 300 MG PO (20:15)
[2024-03-24] MEDS: trazodone 150 mg Tablet PO (20:16)
[2024-03-24] MEDS: budesonide 0.5 mg/2 mL Neb INHALATION (20:49)
--- NOTE | 2024-03-24 20:58 | ECG_ITS ---
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 Measurements Intervals [place] Rate: 94 P: 70 SD: 149 QRS: 261 QRSD: 87 T: 33 QT: 324 QTc: 407 Interpretive Statements SINUS RHYTHM INDETERMINATE AXIS S1-S2-S3 PATTERN, CONSISTENT WITH PULMONARY DISEASE, RVH, OR NORMAL VARIANT PATTERN CONSISTENT WITH PULMONARY DISEASE Compared to ECG 03/24/2024 16:17:40 Indeterminate axis now present Atrial abnormality no longer present ST (T wave) deviation no longer present Electronically Signed On 03-25-2024 16:52:28 SEXTON HELPER by Lester Luis M.D. [id number]
[2024-03-25] VITALS (15 sets, daily range): BP systolic 126–155; BP diastolic 63–88; PULSE 94–118; RESP 17–22; TEMP 36.6–37.3; O2SAT 92–95
[2024-03-25 05:13] LABS: Basophils % 0.1 %; Hematocrit 42.2 % (36-47); Lymphocytes # 1.6 10^3/uL (0.8-4.8); Lymphocytes % 10.9 %; Mean Corpuscular HGB Conc 33.2 g/dL (30-55); Mean Corpuscular Hemoglobin 31.4 pg (27-33); Mean Corpuscular Volume 94.6 fl (85-98); Mean Platelet Volume 9.3 fL (7.4-10.4); Monocytes % 6.8 %; Neutrophils # 11.79 10^3/uL (1.8-7.7); Neutrophils % 81.6 %; Nucleated Red Blood Cells % 0 %; Platelet Count 284 10^3/cmm (157-399); Red Blood Count 4.46 10^6/uL (3.85-5.65); Red Cell Distribution Width 12.7 % (12.1-15.1); White Blood Count 14.44 10^3/uL (3.29-11.43)
[2024-03-25 05:39] LABS: Anion Gap 15.1 (5-19); Blood Urea Nitrogen 9 mg/dL (6-20); Calcium 8.8 mg/dL (8.5-10.5); Carbon Dioxide 20 mmol/L (22-29); Chloride 104 mmol/L (98-107); Creatinine Clr Calc Pharmacy 93.1942; Glomerular Filtration Rate 103.4 mL/min (90-130); Glucose 117 mg/dL (65-115); Osmolality Calculated 280 mOsm/kg (285-295); Potassium 4.1 mmol/L (3.5-5.1); Sodium 135 mmol/L (136-145)
[2024-03-25] MEDS: sodium chloride 0.9% 500 ML 75 ML IV (06:47)
[2024-03-25] MEDS: budesonide 0.5 mg/2 mL Neb INHALATION ×2 (07:24→21:01)
[2024-03-25] MEDS: ipratropium-albuterol 3 mL Neb INHALATION ×4 (07:24→21:01)
[2024-03-25] MEDS: oseltamivir phosphate 75 mg Capsule PO ×2 (08:15→17:58)
[2024-03-25] MEDS: lamoTRIgine 100 mg Tablet 300 MG PO ×2 (08:15→20:14)
--- NOTE | 2024-03-25 10:34 | PC.CHAP ---
Pastoral Care Encounter/Spiritual Assessment Type of Contact [] Declined trust manager assistant visit [] Patient/Family/Request visit [] Outpatient visit [] Follow-up visit [] Physician referral [] Code/Alert [x] Routine visit [] Staff referral [] Actively dying [] Patient sleeping [] Family support [] [] Out of room [] Palliative care [] [] Receiving care in room [] Pre-surgical visit [] Trauma [] Long length of stay [] ICU visit [] Other: Relational/Emotional Strength [] Patient feels connected with others/family/visitors/staff [] Distress [] Loneliness/isolation [] Abandonment Spirituality of Patient [] Person of [place] [] Attends Congregation of their [place] [] Believes in Prayer [] Reads Bible or Baptist materials [] There are Spiritual issues to be addressed Launch Manager Interventions [x] Prayer [] Active listening [] Non-anxious presence [] Spiritual/emotional support [] Crisis/trauma care [] Spiritual counseling [] Bereavement support [] Provided bereavement packet [] Provided Bible/devotional materials [] Provided toy/stuffed animal, coloring book to patient or family member [] Provided Communion [] Anointing/[place] [] Salvation [] Completed spiritual assessment [] Other: Impact on Illness or Injury [] Angry [] Fearful [] Anxious [] Often cries [] Exhaustion [] Unable to work [] Unable to attend presybeterian [] Unable to walk/stand [] Unable to read [] Unable to drive [] Unable to eat/drink [] Unable to sleep [] Unable to be with family [] Patient intubated [] Other: Summary flu Time spent with patient
[2024-03-25] MEDS: enoxaparin 40 mg/0.4 mL Syringe SUBCUT (15:17)
[2024-03-25] MEDS: pantoprazole 40 mg SDV IVP (15:17)
--- NOTE | 2024-03-25 18:05 | P.PN_ITS ---
Subjective 2 Subjective: Patient was seen this morning, he denies any fevers, does have chills, does report fatigue, malaise Vitals/I&O/Wt Last Vital Signs Temp 99.2 F 03/25/24 15:44 Pulse 108 H 03/25/24 15:50 Resp 17 03/25/24 15:44 BP 147/73 03/25/24 15:44 Pulse Ox 92 03/25/24 15:44 O2 Del Method Nasal Cannula 03/25/24 15:44 O2 Flow Rate 3 03/25/24 15:03 03/25/24 03/25/24 03/25/24 06:59 14:59 22:59 Intake Total 1000 / 4013.13 1420 / 1420 120 / 1540 Balance 1000 / 4013.13 1420 / 1420 120 / 1540 Weight last 48 hrs Weight 65.816 kg Weight 66.27 kg Weight 65.771 kg Physical Exam 2 Const: COMMON NORMALS: no acute distress and patient oriented x3 Resp: COMMON NORMALS: normal respiratory effort, No retractions and No use of accessory muscles AUSCULTATION: wheezes Cardio: COMMON NORMALS: regular rate, regular rhythm, S1 normal heart sound present and S2 normal heart sound present RATE: regular rate RHYTHM: r egular rhythm HEART SOUNDS: S1 normal heart sound present and S2 normal heart sound present GI: COMMON NORMALS: Normal to inspection, nondistended, normoactive bowel sounds present and non-tender Extremity: COMMON NORMALS: no pedal edema Neuro: COMMON NORMALS: patient oriented x3 Psych: COMMON NORMALS: mental status grossly normal Data 03/25/24 04:46 03/25/24 04:46 Micro: Microbiology 03/25/24 08:17 Gram Stain - Final Sputum - Expectorated Sputum 03/24/24 12:28 Blood Culture - Preliminary Blood NEGATIVE TO DATE 03/24/24 12:25 Blood Culture - Preliminary Blood NEGATIVE TO DATE 03/24/24 12:10 Urine Culture - Final Urine,Clean Catch A&P Assessment and plan (1) Acute respiratory failure with hypoxia: (2) Influenza A: (3) Sepsis: (4) Viral pneumonia: Plan Acute hypoxic respiratory failure -Secondary to influenza A, viral pneumoniae -With evidence of sepsis, sepsis features met given fevers, tachycardia, respiratory failure, hypoxia, leukocytosis -With underlying COPD exacerbation Plan -IV fluids ? DuoNeb ? Budesonide -Tamiflu -Tessalon Perles for cough -Monitor respiratory status closely -Full code -Lovenox for DVT prophylaxis Chest pain, serial EKGs, serial troponins, telemetry monitoring Attestations 2 Medical Necessity Statement*: Patient requires hospitalization for viral pneumonia Diagnoses Acute respiratory failure with hypoxia J96.01 Influenza A J10.1 Sepsis A41.9 Viral pneumonia J12.9
[2024-03-25] MEDS: predniSONE 20 mg Tablet 40 MG PO (20:13)
[2024-03-25] MEDS: trazodone 150 mg Tablet PO (20:14)
[2024-03-26] VITALS (9 sets, daily range): BP systolic 127–164; BP diastolic 77–91; PULSE 26–113; RESP 14–22; TEMP 36.6–36.9; O2SAT 85–93
[2024-03-26 05:56] LABS: Basophils % 0.2 %; Hematocrit 40.7 % (36-47); Lymphocytes # 1.1 10^3/uL (0.8-4.8); Lymphocytes % 9.2 %; Mean Corpuscular HGB Conc 33.4 g/dL (30-55); Mean Corpuscular Hemoglobin 31.4 pg (27-33); Mean Platelet Volume 9.4 fL (7.4-10.4); Monocytes % 7.9 %; Neutrophils # 10.07 10^3/uL (1.8-7.7); Neutrophils % 82.3 %; Nucleated Red Blood Cells % 0 %; Platelet Count 281 10^3/cmm (157-399); Red Blood Count 4.33 10^6/uL (3.85-5.65); Red Cell Distribution Width 12.7 % (12.1-15.1); White Blood Count 12.23 10^3/uL (3.29-11.43)
[2024-03-26 06:17] LABS: Anion Gap 16.9 (5-19); Blood Urea Nitrogen 7 mg/dL (6-20); Calcium 8.9 mg/dL (8.5-10.5); Carbon Dioxide 24 mmol/L (22-29); Chloride 106 mmol/L (98-107); Creatinine Clr Calc Pharmacy 112.0853; Glomerular Filtration Rate 127.6 mL/min (90-130); Glucose 151 mg/dL (65-115); Osmolality Calculated 295 mOsm/kg (285-295); Potassium 4.9 mmol/L (3.5-5.1); Sodium 142 mmol/L (136-145)
[2024-03-26] MEDS: budesonide 0.5 mg/2 mL Neb INHALATION (07:20)
[2024-03-26] MEDS: ipratropium-albuterol 3 mL Neb INHALATION ×2 (07:20→11:08)
[2024-03-26] MEDS: lamoTRIgine 100 mg Tablet 300 MG PO (08:35)
[2024-03-26] MEDS: oseltamivir phosphate 75 mg Capsule PO (08:35)
[2024-03-26] MEDS: predniSONE 20 mg Tablet 40 MG PO (08:35)
--- NOTE | 2024-03-26 11:47 | PM.DCS ---
Discharge Providers Date of Admission: 03/24/24 13:21 Date of Discharge: March 26, 2024 Attending Provider at Admission: Adriano Canales MD Attending Provider at Discharge: Adriano Canales MD Primary Care Provider: Chanel Yepez MD Diagnoses at Discharge Discharge Diagnosis (1) Acute respiratory failure with hypoxia: Status: Acute (2) Influenza A: Status: Acute (3) Sepsis: Status: Acute (4) Viral pneumonia: Status: Acute Reason for Visit Reason for Visit: sob Hospital Course Hospital Course Meka Kendall is a 58 year old female with a past medical history of smoking, no formal diagnosis of COPD, who presents to [facility] due to shortness of breath, cough fatigue, malaise, fevers for the last 3 days. Patient reports that she can smoke up to 1 to 2 packs/day, she has never been formally diagnosed with COPD, for the last 3 days she has been having increased shortness of breath, shortness of breath with minimal exertion, cough, nonproductive, fatigue, malaise, fevers, chills. He denies any nausea, no vomiting does report chest pain upon exertion This is a 58-year-old female with a past medical history of acute hypoxic respiratory failure secondary to influenza A, viral pneumonia, COPD exacerbation, who presents to [facility] for shortness of breath, acute hypoxia secondary to influenza A. Patient received Tamiflu, fluid therapy, steroid therapy, overall clinically improved. Will be discharged on 3 more days of Tamiflu, prednisone, albuterol, Advair. Physical Exam Const: COMMON NORMALS: no acute distress and patient oriented x3 Resp: COMMON NORMALS: normal respiratory effort, No retractions, No use of accessory muscles and clear to auscultation bilaterally AUSCULTATION: clear to auscultation bilaterally Cardio: COMMON NORMALS: regular rate, regular rhythm, S1 normal heart sound present and S2 normal heart sound present RATE: regular rate RHYTHM: regular rhythm HEART SOUNDS: S1 normal heart sound present and S2 normal heart sound present GI: COMMON NORMALS: Normal to inspection, nondistended, normoactive bowel sounds present and non-tender Extremity: COMMON NORMALS: no pedal edema Neuro: COMMON NORMALS: patient oriented x3 Psych: COMMON NORMALS: mental status grossly normal Discharge Data Studies Completed and Pending Completed Studies During Hospitalization Category Date Time Status CT angio chest PE protcl [id number] Stat Cat Scan 03/24/24 14:38 Completed XR chest 1V portable [id number] Stat Exams 03/24/24 11:51 Completed Pending at discharge Category Date Time Status Basic Metabolic Panel AM LABS Lab 03/27/24 04:00 Ordered Blood Culture Stat Lab 03/24/24 12:28 Results Complete Blood Count w/Auto AM LABS Lab 03/27/24 04:00 Ordered Sputum Culture and Gram Stain Stat Lab 03/25/24 08:17 Results Radiology Impressions Chest X-Ray 03/24/24 11:51 IMPRESSION: No acute findings. Chest CTA 03/24/24 14:38 IMPRESSION: 1. Bilateral pulmonary infiltrates highly suspicious for COVID pneumonia 2. Stable 3.8 cm left adrenal adenoma Laboratory Results WBC 12.23 10^3/uL (3.29-11.43) H 03/26/24 05:39 RBC 4.33 10^6/uL (3.85-5.65) 03/26/24 05:39 Hgb 13.60 g/dL (11.27-16.99) 03/26/24 05:39 Hct 40.7 % (36-47) 03/26/24 05:39 MCV 94.0 fl (85-98) 03/26/24 05:39 MCH 31.4 pg (27-33) 03/26/24 05:39 MCHC 33.4 g/dL (30-55) 03/26/24 05:39 RDW 12.7 % (12.1-15.1) 03/26/24 05:39 Plt Count 281 10^3/cmm (157-399) 03/26/24 05:39 MPV 9.4 fL (7.4-10.4) 03/26/24 05:39 Neut % (Auto) 82.3 % 03/26/24 05:39 Lymph % (Auto) 9.2 % 03/26/24 05:39 [place] % (Auto) 7.9 % 03/26/24 05:39 Eos % (Auto) 0.0 % 03/26/24 05:39 Baso % (Auto) 0.2 % 03/26/24 05:39 Neut # (Auto) 10.07 10^3/uL (1.8-7.7) H 03/26/24 05:39 Lymph # (Auto) 1.1 10^3/uL (0.8-4.8) 03/26/24 05:39 [place] # (Auto) 1.0 10^3/uL (0.2-0.9) H 03/26/24 05:39 Eos # (Auto) 0.0 10^3/uL (0.0-0.8) 03/26/24 05:39 Baso # (Auto) 0.0 10^3/uL (0.0-0.1) 03/26/24 05:39 Nucleated RBC % (auto) 0 % 03/26/24 05:39 Nucleated RBCs # 0.0 /100WBC 03/26/24 05:39 PT 12.80 SECONDS (12.1-14.9) 03/24/24 12:25 INR 0.93 (0.8-1.2) 03/24/24 12:25 Sodium 142 mmol/L (136-145) 03/26/24 05:39 Potassium 4.9 mmol/L (3.5-5.1) 03/26/24 05:39 Chloride 106 mmol/L (98-107) 03/26/24 05:39 Carbon Dioxide 24 mmol/L (22-29) 03/26/24 05:39 Anion Gap 16.9 (5-19) 03/26/24 05:39 BUN 7 mg/dL (6-20) 03/26/24 05:39 Creatinine 0.5 mg/dL (0.5-0.9) 03/26/24 05:39 GFR Calculation 127.6 mL/min (90-130) 03/26/24 05:39 Glucose 151 mg/dL (65-115) H 03/26/24 05:39 Calculated Osmolality 295 mOsm/kg (285-295) 03/26/24 05:39 Lactic Acid 1.6 mmol/L (0.5-2.2) 03/24/24 12:25 Calcium 8.9 mg/dL (8.5-10.5) 03/26/24 05:39 Total Bilirubin 0.3 mg/dL (0.15-1.2) 03/24/24 12:25 AST 46 U/L (0-32) H 03/24/24 12:25 ALT 31 U/L (0-33) 03/24/24 12:25 Alkaline Phosphatase 116 U/L (35-105) H 03/24/24 12:25 Troponin T Baseline 9 ng/L (0-10) 03/24/24 12:25 Troponin T 120 Minute 6.80 ng/L (0-10) 03/24/24 14:25 Delta Troponin T -2.20 ABS# (0-10) L 03/24/24 14:25 Troponin T Hi Sens 6Hr 9.87 ng/L (0-10) 03/24/24 17:56 Troponin T Hi Sens 6Hr Delta 0.87 ng/L (0-12) 03/24/24 17:56 C-Reactive Protein 147.0 mg/L (0.0-4.9) H 03/24/24 12:25 NT-Pro-B Natriuret Pep 246 pg/mL (0-125) H 03/24/24 12:25 Total Protein 7.9 g/dL (6.6-8.7) 03/24/24 12:25 Albumin 4.2 g/dL (3.5-5.2) 03/24/24 12:25 Globulin 3.7 g/dL (1.3-4.6) 03/24/24 12:25 Procalcitonin 0.30 ng/mL (0-0.5) 03/24/24 12:25 TSH 0.86 uIU/mL (0.27-4.20) 03/24/24 14:25 Urine Color Yellow (Yellow) 03/24/24 12:10 Urine Appearance Cloudy (CLEAR) A 03/24/24 12:10 Urine pH 5.5 (5-7) 03/24/24 12:10 Ur Specific [place] 1.022 (1.005-1.030) 03/24/24 12:10 Urine Protein 2+ (Negative) A 03/24/24 12:10 Urine Glucose (UA) Negative (Normal) 03/24/24 12:10 Urine Ketones 2+ (Negative) H 03/24/24 12:10 Urine Blood 2+ (Negative) A 03/24/24 12:10 Urine Nitrate Negative (Negative) 03/24/24 12:10 Urine Bilirubin Negative (Negative) 03/24/24 12:10 Urine Urobilinogen 1.0 mg/dL (Negative) 03/24/24 12:10 Ur Leukocyte Esterase Negative (Negative) 03/24/24 12:10 Urine RBC 6-10 /hpf (0-2) 03/24/24 12:10 Urine WBC 0-5 /hpf (0-5) 03/24/24 12:10 Ur Squamous Epith Cells 6-10 /hpf (0-5) 03/24/24 12:10 Amorphous Sediment Not Reportable 03/24/24 12:10 Urine Bacteria 1+ /hpf (NONE) H 03/24/24 12:10 Hyaline Casts 5.36 /lpf 03/24/24 12:10 Coarse Granular Casts 5-10 /lpf H 03/24/24 12:10 Coronavirus (PCR) Negative (Negative) 03/24/24 12:09 Influenza A (PCR) Positive (Negative) 03/24/24 12:09 Influenza Type B (PCR) Negative (Negative) 03/24/24 12:09 RSV (PCR) Negative (Negative) 03/24/24 12:09 Vitals Last Vital Signs Temp 97.9 F 03/26/24 08:00 Pulse 100 03/26/24 11:09 Resp 16 03/26/24 11:09 BP 132/77 03/26/24 08:00 Pulse Ox 89 L 03/26/24 11:26 O2 Del Method Room Air 03/26/24 11:09 O2 Flow Rate 2 03/26/24 11:26 Discharge Plan Discharge Patient Disposition: Home Condition: Stable Prescriptions: New prednisone 20 mg Tablet 40 mg PO DAILY 3 Days Qty: 6 0RF oseltamivir 75 mg Capsule 75 mg PO BID 3 Days Qty: 6 0RF benzonatate 100 mg Capsule 100 mg PO TID PRN (Reason: Cough) 7 Days Qty: 21 0RF albuterol sulfate 90 mcg/actuation HFA aerosol inhaler 1 inh inhalation Q6H PRN (Reason: shortness of breath or wheezing) Qty: 8.5 0RF fluticasone propion-salmeterol [Advair Diskus] 100-50 mcg/dose blister with device 1 inh inhalation DAILY Qty: 60 0RF Continued lamotrigine [Lamictal] 150 mg tablet 300 mg PO BID loratadine [Claritin] 10 mg tablet 10 mg PO DAILY Qty: 90 1RF rosuvastatin 20 mg tablet 20 mg PO DAILY Qty: 90 0RF trazodone 150 mg tablet 150 mg PO DAILY Discharge Orders: Discharge Order (Routine); Ordered 03/26/24 Ordered By: Adriano Canales Referrals: Chanel Yepez MD [Primary Care Provider] - (We have notified your physician's clinic of the need for a follow-up appointment to be scheduled. If you have not heard from them within the next 2 business days, please call them directly. ) Malachi Easton MD, MBBS, MPH [Referring] - 1 month (We have notified your physician's clinic of the need for a follow-up appointment to be scheduled. If you have not heard from them within the next 2 business days, please call them directly. ) Discharge Diet: Regular Discharge Activity: Resume usual activity Patient Instructions: Opioid Safety Activity Restrictions/Additional Instructions: - Please hydrate well -Tylenol for fevers -Stop smoking -Follow-up with primary care provider 1 week -Follow-up with pulmonary Discharge Attestations Time Spent in Discharge Care*: greater than 30 min Quality Metrics Clinical Quality Measures [ No reported AMI, CVA or VTE this stay] Coding Level of Care Code 52785 Total time (in minutes) for Discharge: 45 Diagnoses Acute respiratory failure with hypoxia J96.01 Influenza A J10.1 Sepsis A41.9 Viral pneumonia J12.9
== END 2024-03-26 15:12 | disposition home or self-care (01) | DRG 871 ==
LOC: ER 13:24 → MEDSURG 14:54
PROVIDERS: Admitting Provider Family Medicine; Emergency Provider Emergency Medicine; PCP Family Medicine; Visit Provider Family Medicine
DX: A41.9 Sepsis, unspecified organism (principal); J12.9 Viral pneumonia, unspecified; J96.01 Acute respiratory failure with hypoxia; J44.1 Chronic obstructive pulmonary disease with (acute) exacerbation; J44.0 Chronic obstructive pulmonary disease with (acute) lower respiratory infection; J10.1 Influenza due to other identified influenza virus with other respiratory manifestations; F17.210 Nicotine dependence, cigarettes, uncomplicated; M79.7 Fibromyalgia; G47.00 Insomnia, unspecified; Z85.42 Personal history of malignant neoplasm of other parts of uterus; Z90.710 Acquired absence of both cervix and uterus; Z98.1 Arthrodesis status
CPT/HCPCS: 36415; 71045; 71275; 80048; 80053; 81001; 83605; 83880; 84145; 84443; 84484; 85025; 85610; 86140; 87040; 87070; 87086; 87205; 87637; 93005; 94640; 94664; 94760; 96372; 96374; 96375; 99285; J1100; J1650; J2470; J7030; J7040; J7512; J7626

== ENCOUNTER → 2024-11-21 16:26 | Outpatient (BNVA) | payer MEDICARE, SELFPAY | PROVIDERS: PCP Family Medicine; Visit Provider Family Medicine | DX: E78.5 Hyperlipidemia, unspecified (principal); F10.10 Alcohol abuse, uncomplicated; G40.909 Epilepsy, unspecified, not intractable, without status epilepticus; G47.00 Insomnia, unspecified; R73.01 Impaired fasting glucose | CPT/HCPCS: 80061; 83036; 84439; 84443 ==

== ENCOUNTER 2024-12-11 15:00 | Outpatient (CLI) | payer MEDICARE, SELFPAY | END 2024-12-11 15:01 | disposition home or self-care (01) | LOC: SLEEP 15:04 | PROVIDERS: PCP Family Medicine; Referring Provider Family Medicine; Visit Provider Internal Medicine Pulmonary Disease | DX: R06.00 Dyspnea, unspecified (principal) | CPT/HCPCS: 94762 ==